=== PATIENT | male | born 1985 | race Caucasian/White ===

== ENCOUNTER 2020-11-13 02:03 | Emergency (ER) | payer OTHER ==
[~2020-11-13] VITALS: Ht 172.7 cm; Wt 80.9 kg
[2020-11-13] MEDS ORDERED: LISI-894 PO (02:17)
[2020-11-13] MEDS ORDERED: INSREG SQ (02:17)
[2020-11-13] MEDS ORDERED: SERT-158 PO (02:17)
[2020-11-13] MEDS ORDERED: INSLAN SQ (02:17)
[2020-11-13] MEDS ORDERED: HYD50 PO (02:17)
[2020-11-13] MEDS ORDERED: GABA-1181 PO (02:17)
[2020-11-13 02:41] LABS: BASOPHILS % (AUTO) 0.9 % (0.0-2.0); EOSINOPHILS % (AUTO) 1.1 % (1.0-6.0); HEMATOCRIT 43.8 % (41-53); HEMOGLOBIN 14.6 g/dL (13.5-17.5); LYMPHOCYTES # (AUTO) 2.2 K/uL (1.0-4.8); LYMPHOCYTES % (AUTO) 24.1 % (22.0-44.0); MEAN CORPUSCULAR HEMOGLOBIN 30.5 pg (26.0-34.0); MEAN CORPUSCULAR HGB CONC 33.4 G/dL (31.0-37.0); MEAN CORPUSCULAR VOLUME 91 fL (80-100); MONOCYTES # (AUTO) 0.8 K/uL (0.1-1.0); MONOCYTES % (AUTO) 8.8 % (2.0-9.0); NEUTROPHILS # (AUTO) 6.1 K/uL (1.8-7.7); NEUTROPHILS % (AUTO) 65.1 % (40.0-70.0); PLATELET COUNT (AUTO) 254 K/uL (150-450); RED CELL DISTRIBUTION WIDTH 14.4 % (11.5-14.5)
[2020-11-13 02:50] LABS: ANION GAP 11 mmol/L (8-16); CARBON DIOXIDE 27 mmol/L (22-29); CHLORIDE 102 mmol/L (98-107); CREATININE 1.17 mg/dL (0.60-1.30); GLOMERULAR FILTR. RATE CALC > 60 mL/min (>60); GLUCOSE,RANDOM 184 mg/dL (70-110); POTASSIUM 3.8 mmol/L (3.5-5.1); SODIUM SERUM 140 mmol/L (136-145); UREA NITROGEN, BLOOD 19 mg/dL (7-18)
[2020-11-13 02:56] LABS: ALANINE AMINOTRANSFERASE 45 U/L (12-78); ALBUMIN 3.8 g/dL (3.4-5.0); ALKALINE PHOSPHATASE 70 U/L (46-116); ASPARTATE AMINOTRANSFERASE 24 U/L (15-37); BILIRUBIN,TOTAL 0.3 mg/dL (0.1-1.0); TOTAL PROTEIN, SERUM 6.9 g/dL (6.4-8.2)
[2020-11-13 06:00] VITALS: BP 141/83
== END 2020-11-13 07:39 | disposition home or self-care (01) ==
LOC: EMS 02:10
DX: R56.9 Unspecified convulsions (principal); R55 Syncope and collapse; E11.9 Type 2 diabetes mellitus without complications; I10 Essential (primary) hypertension; F17.200 Nicotine dependence, unspecified, uncomplicated; Z88.0 Allergy status to penicillin; Z79.4 Long term (current) use of insulin; Z79.899 Other long term (current) drug therapy
CPT/HCPCS: 70450; 80053; 82962; 85025; 93005; 99285

== ENCOUNTER 2021-01-06 10:11 | Emergency (ER) | payer OTHER ==
[~2021-01-06] VITALS: Ht 172.7 cm; Wt 80.5 kg
[~2021-01-06 10:11] MED LIST: GABA-1181 PO; HYD50 PO; INSLAN SQ; INSREG SQ; LISI-894 PO; SERT-158 PO
[2021-01-06] MEDS ORDERED: CHOL100044 PO (10:18)
[2021-01-06] MEDS ORDERED: LITH300C3 PO (10:18)
[2021-01-06] MEDS ORDERED: IBUPROFEN 600 MG TABLET PO ONE (11:15)
[2021-01-06 11:52] VITALS: BP 126/80
== END 2021-01-06 12:35 | disposition home or self-care (01) ==
LOC: EMS 10:15
DX: S90.112A Contusion of left great toe without damage to nail, initial encounter (principal); E11.40 Type 2 diabetes mellitus with diabetic neuropathy, unspecified; F32.9 Major depressive disorder, single episode, unspecified; E78.00 Pure hypercholesterolemia, unspecified; I10 Essential (primary) hypertension; F17.210 Nicotine dependence, cigarettes, uncomplicated; Z88.0 Allergy status to penicillin; Z79.899 Other long term (current) drug therapy; Z79.4 Long term (current) use of insulin; W23.0XXA Caught, crushed, jammed, or pinched between moving objects, initial encounter; Y93.89 Activity, other specified; Y92.89 Other specified places as the place of occurrence of the external cause; Y99.8 Other external cause status
CPT/HCPCS: 82962; 99283